=== PATIENT | female | born 1975 | race African-American/Black ===

== ENCOUNTER 2017-02-12 18:17 | Emergency (ER) | payer MEDICAID ==
[~2017-02-12] VITALS: Ht 170.2 cm; Wt 85.0 kg
[2017-02-12 22:33] LABS: BASOPHILS % 0.2 % (0.0-2.0); EOSINOPHILS % 1.3 % (0.0-5.0); HEMATOCRIT. 29.6 % (36.0-48.0); HEMOGLOBIN. 9.3 g/dL (12.0-16.0); LYMPHOCYTES % 38.1 % (20.0-50.0); MEAN CORPUSCULAR VOLUME 63.4 fL (81.0-99.0); MEAN PLATELET VOLUME 8.7 fl (7.4-10.4); MONOCYTES % 7.5 % (2.0-8.0); NEUTROPHILS % 52.9 % (40.0-76.0); PLATELET 291 x1000/uL (130-400); RED BLOOD CELL COUNT 4.67 mill/uL (4.2-5.4); RED CELL DISTRIBUTION WIDTH 19.7 % (11.6-14.6)
[2017-02-12 22:36] LABS: CHLORIDE 107 mEq/L (98-107)
[2017-02-12 22:39] LABS: CARBON DIOXIDE 29 mEq/L (21-32); PARTIAL THROMBOPLASTIN TIME 25.4 sec (23.4-31.0); PROTHROMBIN TIME 10.7 sec (9.4-11.6)
[2017-02-12 22:48] LABS: PLATELET ESTIMATE NORMAL
[2017-02-12 23:15] VITALS: BP 118/75
== END 2017-02-13 00:30 | disposition home or self-care (01) ==
LOC: ER 20:27
DX: R20.2 Paresthesia of skin (principal); D64.9 Anemia, unspecified; F12.10 Cannabis abuse, uncomplicated; Z86.718 Personal history of other venous thrombosis and embolism
CPT/HCPCS: 36415; 80053; 85025; 85610; 85730; 93971; 99285; Z7610

== ENCOUNTER 2022-03-18 08:39 | Emergency (ER) | payer MEDICAID, OTHER ==
[~2022-03-18] VITALS: Ht 170.2 cm; Wt 84.0 kg
[2022-03-18 08:50] VITALS: BP 127/84
[2022-03-18] MEDS: ACETAMINOPHEN 325MG TABLET PO NR ×2 (10:32→18:29)
[2022-03-18] MEDS ORDERED: ACETAMINOPHEN 325MG TABLET PO STA (10:32)
[2022-03-18 15:47] LABS: BASOPHILS % 0.3 % (0.0-2.0); HEMATOCRIT. 35.9 % (36.0-48.0); HEMOGLOBIN. 11.5 g/dL (12.0-16.0); LYMPHOCYTES % 39.6 % (20.0-50.0); MEAN CORPUSCULAR HEMOGLOBIN 21.3 pg (28.0-32.0); MEAN CORPUSCULAR VOLUME 66.5 fL (81.0-99.0); MEAN PLATELET VOLUME 7.4 fl (7.4-10.4); NEUTROPHILS % 51.1 % (40.0-76.0); PLATELET 299 x1000/uL (130-400); RED BLOOD CELL COUNT 5.39 mill/uL (4.2-5.4); RED CELL DISTRIBUTION WIDTH 17.3 % (11.6-14.6)
[2022-03-18 15:54] LABS: CHLORIDE 107 mEq/L (98-107)
[2022-03-18 15:56] LABS: HCG SCREEN NEGATIVE
[2022-03-18 17:06] LABS: PLATELET ESTIMATE NORMAL
[2022-03-18] MEDS ORDERED: IBUP-2028 MT (18:14)
[2022-03-18] MEDS ORDERED: IOHEXOL-350 100 ML BOTTLE ONE (19:37)
== END 2022-03-18 20:13 | disposition home or self-care (01) ==
LOC: ER 08:39
DX: M54.6 Pain in thoracic spine (principal); D50.9 Iron deficiency anemia, unspecified; F17.210 Nicotine dependence, cigarettes, uncomplicated; Z86.718 Personal history of other venous thrombosis and embolism; Z71.6 Tobacco abuse counseling; Z98.890 Other specified postprocedural states
CPT/HCPCS: 36415; 71045; 71275; 80053; 83880; 84484; 84703; 85025; 85379; 93005; 99285; 99406; Q9967

== ENCOUNTER 2023-07-17 17:51 | Emergency (ER) | payer BC, OTHER ==
[~2023-07-17] VITALS: Ht 170.2 cm; Wt 73.0 kg
[~2023-07-17 17:51] MED LIST: IBUP-2028 MT
[2023-07-17 18:06] VITALS: TEMP 98.2; O2SAT 98
[2023-07-17] MEDS: METOCLOPRAMIDE HCL 10MG TABLET PO ONE (19:00)
[2023-07-17] MEDS: CYCLOBENZAPRINE 10MG TABLET PO ONE (20:28)
[2023-07-17] MEDS: KETOROLAC 60MG/2ML VIAL IM ONE (23:58)
[2023-07-17 23:59] LABS: BASOPHILS % 0.3 % (0.0-2.0); EOSINOPHILS % 0.5 % (0.0-5.0); HEMATOCRIT. 34.7 % (36.0-48.0); HEMOGLOBIN. 11.5 g/dL (12.0-16.0); LYMPHOCYTES % 26.4 % (20.0-50.0); MEAN CORPUSCULAR HEMOGLOBIN 22.9 pg (28.0-32.0); MEAN CORPUSCULAR VOLUME 69.2 fL (81.0-99.0); MEAN PLATELET VOLUME 7.7 fl (7.4-10.4); MONOCYTES % 8.2 % (2.0-8.0); NEUTROPHILS % 64.6 % (40.0-76.0); PLATELET 290 x1000/uL (130-400); RED BLOOD CELL COUNT 5.02 mill/uL (4.2-5.4); RED CELL DISTRIBUTION WIDTH 17.4 % (11.6-14.6); WHITE BLOOD COUNT 8.7 x1000/uL (4.5-11.0)
[2023-07-18 00:10] LABS: ADD RBC MORPHOLOGY YES; DIFFERENTIAL COMMENT 1
[2023-07-18 00:12] LABS: CHLORIDE 108 mEq/L (98-107); POTASSIUM 3.6 mEq/L (3.5-5.1); SODIUM 138 mEq/L (136-145)
[2023-07-18 00:13] LABS: CARBON DIOXIDE 25 mEq/L (21-32)
[2023-07-18 00:18] LABS: CREATININE 0.8 mg/dL (0.6-1.0); GLUCOSE 101 mg/dL (70-105); UREA NITROGEN BLOOD 10 mg/dL (9-23)
[2023-07-18 00:20] LABS: ALANINE AMINOTRANSFERASE 9 IU/L (10-49); ALBUMIN 4.4 g/dL (3.2-4.8); ASPARTATE AMINOTRANSFERASE 12 IU/L (<34); BILIRUBIN TOTAL 0.4 mg/dL (0.1-1.0)
[2023-07-18 00:21] LABS: PROTEIN TOTAL 7.6 g/dL (6.0-8.3); T4 FREE 1.02 ng/dL (0.89-1.76)
[2023-07-18 00:22] LABS: THYROID STIMULATING HORMONE 4.07 uIU/mL (0.55-4.78)
[2023-07-18 00:30] LABS: HCG SCREEN NEGATIVE
[2023-07-18 01:51] VITALS: BP 125/75; PULSE 83; RESP 14
[2023-07-18 07:46] LABS: PLATELET ESTIMATE NORMAL
[2023-07-18 07:47] LABS: HYPOCHROMASIA 1+; MICROCYTOSIS 2+
== END 2023-07-18 01:53 | disposition home or self-care (01) ==
LOC: ER 19:14
DX: E04.9 Nontoxic goiter, unspecified (principal); M54.2 Cervicalgia; F12.10 Cannabis abuse, uncomplicated; Z87.01 Personal history of pneumonia (recurrent)
CPT/HCPCS: 99285; 80053; 84703; 84439; 84443; 85025; 36415; 76536; 96372; J8597; J1885